=== PATIENT | female | born 1945 | race Caucasian/White ===

== ENCOUNTER → 2017-10-31 | Outpatient (CLI) | payer MEDICARE, OTHER ==
[~2017-10-31] MED LIST: ASCO-182 PO; ASPI-1471 PO; ASPI-715 PO; BLOO-1318 MC; CALC1TAB32 PO; CHOL200074 PO; EXE25PT PO; EZET1TAB70 PO; EZET1TAB81 PO; FLU45SYR17 IM; FLU45SYR25 IM ONLY; FLU60SYR30 IM ONLY; GLIM2TAB43 PO; GLIM4TAB50 PO; GLUC100015 PO; GLY5 PO; GLYB1TAB47 PO; LEVI SQ; LISI2.5T60 PO; METF-420 PO; MULT1TAB64 PO; OMEG-11 PO; OXYGENHOME INH; PIOG45TA18 PO; PIOG45TA22 PO; PNEU0.5D3 IM; RIS35 PO; SIMV-49 PO; VITA-200 PO; [UNRECOGNIZED DRUG - CODE] MC; [UNRECOGNIZED DRUG - CODE] PO
--- NOTE | 2017-10-31 16:23 | RADIOLOGY IMAGING REPORT ---
FACILITY: [facility] - [place] PATIENT NAME: CRISTI MURGUIA : [id number] MR: [id number] V: [id number] EXAM DATE: [id number] ORDERING PHYSICIAN: GEOFF HUMPHREY TECHNOLOGIST: Lauren Norman PROCEDURE:BILATERAL DIGITAL SCREENING MAMMOGRAM WITH CAD ASSISTED INTERPRETATION & 3D TOMOSYNTHESIS COMPARISON:Prior mammograms 09/05/16, 07/27/15, 08/04/14, 07/27/13, 06/27/12, 06/25/11. INDICATIONS:SCREENING FINDINGS: Mildly heterogeneous fibroglandular tissue is seen throughout the breasts. The parenchymal pattern has remained stable allowing for difference in mammographic technique & patient positioning. Area of postsurgical scaring in the 6 o'clock position Left breast is again seen. Skin thickening is also noted about the Left breast consistent with the history of prior radiation therapy. There is no evidence of malignant appearing mass, malignant appearing calcifications or other secondary sign of malignancy in either breast. DIAGNOSTIC CATEGORY 2--BENIGN FINDING. RECOMMENDATIONS: ROUTINE MAMMOGRAM AND CLINICAL EVALUATION. IMPRESSION: BIRADS 2: Benign finding No significant abnormality is seen. Dictated by: Sarita Smith M.D. on 10/31/2017 at 11:42 Transcribed by: DANIEL on 10/31/2017 at 11:50 Approved by: Sarita Smith M.D. on 10/31/2017 at 16:22 [facility]
== END ==
LOC: MAMO 01:13
PROVIDERS: ATTEND Internal Medicine
DX: Z12.31 Encounter for screening mammogram for malignant neoplasm of breast (principal)
CPT/HCPCS: 77063; 77067

== ENCOUNTER → 2018-11-28 | Outpatient (CLI) | payer MEDICARE, OTHER ==
[~2018-11-28] MED LIST changes: +CALC600T63 PO; +FLU180SY11 IM; -METF-420 PO; +METF-452 PO; +OMEG-24 PO
--- NOTE | 2018-11-28 14:08 | RADIOLOGY IMAGING REPORT ---
FACILITY: [facility] PATIENT NAME: CRISTI MURGUIA : [id number] MR: [id number] V: [id number] EXAM DATE: [id number] ORDERING PHYSICIAN: MARIA L JIMENEZ TECHNOLOGIST: Lauren Norman PROCEDURE: BILATERAL DIGITAL SCREENING MAMMOGRAM WITH CAD ASSISTED INTERPRETATION & 3D TOMOSYNTHESIS REASON FOR STUDY: Screening FAMILY HISTORY OF BREAST CANCER: Herself in 2006 & her brother. BREAST PROCEDURES/TREATMENTS: Surgical biopsy & radiation therapy of the Left breast in 2006 COMPARISON: 10/31/17, 09/05/16, 07/27/15, 08/04/14, 07/27/13, 06/27/12 VIEWS OBTAINED: Bilateral 2D & 3D full field CC & MLO projections. BREAST DENSITY: There are scattered areas of fibroglandular density throughout the breasts. MAMMOGRAM FINDINGS: Again noted is the area of post surgical scarring & architectural distortion in the 6 o'clock position of the Right breast. There is a small grouping of slightly pleomorphic calcifications in the upper outer quadrant of the Right breast at the junction of the middle & posterior depth that appear slightly increased when compared with the prior studies. Spot magnification views recommended for further evaluation. IMPRESSION: BIRADS 0: Incomplete, need additional imaging evaluation. Additional views of the Right breast recommended as described. DIAGNOSTIC CATEGORY 0--INCOMPLETE: NEED ADDITIONAL IMAGING EVALUATION. RECOMMENDATIONS: ADDITIONAL MAMMOGRAPHIC VIEWS REQUIRED: RIGHT BREAST. Dictated by: Sarita Smith M.D. on 11/28/2018 at 13:59 Transcribed by: ROMAN on 11/28/2018 at 14:04 Approved by: Sarita Smith M.D. on 11/28/2018 at 14:07 [facility]
== END ==
LOC: MAMO 01:19
PROVIDERS: ATTEND Family Medicine
DX: R92.8 Other abnormal and inconclusive findings on diagnostic imaging of breast (principal); Z80.3 Family history of malignant neoplasm of breast
CPT/HCPCS: 77063; 77067

== ENCOUNTER → 2018-12-04 | Outpatient (CLI) | payer MEDICARE, OTHER ==
--- NOTE | 2018-12-09 12:26 | RADIOLOGY IMAGING REPORT ---
FACILITY: [facility] - [place] PATIENT NAME: CRISTI MURGUIA : [id number] MR: [id number] V: [id number] EXAM DATE: [id number] ORDERING PHYSICIAN: MARIA L JIMENEZ TECHNOLOGIST: Dianna Da Silva PROCEDURE:RIGHT DIGITAL MAMMOGRAM DIAGNOSTIC WITH CAD ASSISTED INTERPRETATION & 3D TOMOSYNTHESIS REASON FOR STUDY: Further evaluation. FAMILY HISTORY OF BREAST CANCER: Self in 2006 and brother. BREAST PROCEDURES/TREATMENTS: Surgical biopsy and radiation therapy on the Left in 2006. COMPARISON STUDIES: Prior mammograms 11/28/18, 10/31/17, 09/05/16, 07/27/15, 08/04/14, 07/27/13, 06/27/12. VIEWS OBTAINED: Full field 2D Right MLO projection & 2D Spot magnification views in the Right CC & MLO projections. MAMMOGRAM FINDINGS: The small grouping of slightly pleomorphic calcifications in the upper outer quadrant of the Right breast at the junction of the middle and posterior depth are re-demonstrated. These are slightly more prominent when compared to the prior study. Stereotactic biopsy is recommended for further evaluation. If these are too far posterior to localize stereotacticly then mammographically guided needle hookwire localization with surgical excision is recommended. DIAGNOSTIC CATEGORY 4--SUSPICIOUS FOR MALIGNANCY. RECOMMENDATIONS: STEREOTACTIC BREAST BIOPSY: RIGHT BREAST. IMPRESSION: BIRADS 4: Suspicious for malignancy. Stereotactic biopsy of the slightly pleomorphic increasing calcifications in the upper outer quadrant of the Right breast as described above. If these are too far posterior to localize stereotacticly than mammographically guided hookwire localization with surgical excision recommended. Dictated by: Sarita Smith M.D. on 12/04/2018 at 15:38 Transcribed by: DANIEL on 12/05/2018 at 9:40 Approved by: Sarita Smith M.D. on 12/09/2018 at 12:25 [facility]
== END ==
LOC: RAD 07:03
PROVIDERS: ATTEND Family Medicine
DX: Z12.31 Encounter for screening mammogram for malignant neoplasm of breast (principal); Z80.3 Family history of malignant neoplasm of breast
CPT/HCPCS: 77061; 77065

== ENCOUNTER → 2018-12-22 | Outpatient (CLI) | payer MEDICARE, OTHER ==
[~2018-12-22] MED LIST changes: +DIAZ-308 PO
[2018-12-22 15:34] LABS: INR 0.9
== END ==
LOC: LAB 15:14
PROVIDERS: ATTEND Family Medicine
DX: Z01.812 Encounter for preprocedural laboratory examination (principal)
CPT/HCPCS: 36415; 85610

== ENCOUNTER → 2018-12-24 | Outpatient (CLI) | payer MEDICARE, OTHER ==
--- NOTE | 2018-12-25 16:03 | RADIOLOGY IMAGING REPORT ---
FACILITY: [facility] PATIENT NAME: CRISTI MURGUIA : [id number] MR: [id number] V: [id number] EXAM DATE: [id number] ORDERING PHYSICIAN: MARIA L JIMENEZ TECHNOLOGIST: Dianna Da Silva PROCEDURE:RIGHT DIGITAL MAMMOGRAM DIAGNOSTIC REASON FOR STUDY: Preliminary database marketing manager film for stereotactic biopsy of the Right breast FAMILY HISTORY OF BREAST CANCER: Self in 2007 & brother BREAST PROCEDURES/TREATMENTS: Surgical biopsy Left breast 2006 followed by radiation therapy COMPARISON STUDIES: 12/04/18, 11/28/18, 10/31/17, 09/05/16, 07/27/15, 08/04/14, 07/27/13, 06/27/12 MAMMOGRAM VIEWS OBTAINED: Full field 2D Right mediolateral view & a 2D spot compression view Right LM view BREAST DENSITY: There are scattered areas of fibroglandular density throughout the Right breast. MAMMOGRAM FINDINGS: The small grouping of slightly pleomorphic calcifications in the upper outer quadrant of the Right breast at the junction of the middle & posterior depths are redemonstrated. However, these were too far posterior to be positioned within the target window for the stereotactic biopsy. Therefore, surgical excision with mammographically guided hookwire localization is recommended. DIAGNOSTIC CATEGORY 4--SUSPICIOUS FOR MALIGNANCY. RECOMMENDATIONS: SURGICAL BIOPSY COORDINATED WITH MAMMOGRAM HOOKWIRE LOCALIZATION: RIGHT BREAST. IMPRESSION: BIRADS 4: Suspicious for malignancy. Surgical biopsy of the pleomorphic calcifications upper outer quadrant Right breast recommended coordinated with mammographic hookwire localization as described above. Dictated by: Sarita Smith M.D. on 12/24/2018 at 10:51 Transcribed by: ROMAN on 12/25/2018 at 12:20 Approved by: Sarita Smith M.D. on 12/25/2018 at 16:02 [facility]
--- NOTE | 2018-12-25 16:03 | RADIOLOGY IMAGING REPORT ---
FACILITY: [facility] - [place], [place] PATIENT NAME: CRISTI MURGUIA : [id number] MR: [id number] V: [id number] EXAM DATE: ORDERING PHYSICIAN: MARIA L JIMENEZ TECHNOLOGIST: Dianna Da Silva PROCEDURE: STEREOTACTIC RIGHT BREAST BIOPSY COMPARISON: None. INDICATIONS: calcifications/Indeterminate calcifications upper outer quadrant of the Right breast FINDINGS: Multiple attempts at localizing the pleomorphic calcifications in the upper outer quadrant of the Right breast was unsuccessful due to the far posterior location. Therefore, surgical excision coordinated with mammographic hookwire localization recommended. DIAGNOSTIC CATEGORY 4--SUSPICIOUS FOR MALIGNANCY. RECOMMENDATIONS: SURGICAL BIOPSY COORDINATED WITH MAMMOGRAM HOOKWIRE LOCALIZATION: RIGHT BREAST. IMPRESSION: BIRADS 4: Suspicious for malignancy. Surgical biopsy coordinated with mammographic hookwire localization of the pleomorphic calcifications upper outer quadrant of the Right breast recommended as described above. Dictated by: Sarita Smith M.D. on 12/24/2018 at 10:53 Transcribed by: ROMAN on 12/25/2018 at 12:14 Approved by: Sarita Smith M.D. on 12/25/2018 at 16:02 [facility]
== END ==
LOC: LAB 12-18 08:30 → MAMO 01:21
PROVIDERS: ATTEND Family Medicine
DX: R92.1 Mammographic calcification found on diagnostic imaging of breast (principal)
CPT/HCPCS: 19081; 77061; 77065

== ENCOUNTER → 2019-01-19 | Outpatient (CLI) | payer MEDICARE, OTHER ==
--- NOTE | 2019-01-19 14:24 | EKG ---
FACILITY: PATIENT NAME: CRISTI MURGUIA : [id number] MR: [id number] V: [id number] EXAM DATE: ORDERING PHYSICIAN: EVA OLMEDO TECHNOLOGIST: BUD Childers Reason : PRE OP CLEARANCE Blood Pressure : / mmHG Vent. Rate : 063 BPM Atrial Rate : 063 BPM P-R Int : 128 ms QRS Dur : 126 ms QT Int : 440 ms P-R-T Axes : 066 -15 041 degrees QTc Int : 450 ms Normal sinus rhythm Right bundle branch block Abnormal ECG No previous ECGs available Referred By: HONORIO Confirmed By:
== END ==
LOC: RESP 13:58
PROVIDERS: ATTEND Surgery
DX: Z01.810 Encounter for preprocedural cardiovascular examination (principal); E11.65 Type 2 diabetes mellitus with hyperglycemia; R94.31 Abnormal electrocardiogram [ECG] [EKG]

== ENCOUNTER 2019-01-29 00:19 | Day surgery (SDC) | payer MEDICARE, OTHER ==
[2019-01-20 15:46] LABS: PLATELET COUNT, AUTOMATED 193 K/uL (150-450)
[~2019-01-29] VITALS: Ht 157.5 cm; Wt 103.9 kg
[~2019-01-29 00:19] MED LIST changes: +FAMOTIDINE 20 MG TAB PO ONE; +LIDOCAINE/SOD BICARB 8.4% SYR ID ONE; +MIDAZOLAM 2 MG/2 ML VIAL IVP PRN; +NORMOSOL R SOLN(*) 1000 ML BAG 1,000 ML IV PRN; +ceFAZolin(*) 2GM/D5W 50ML 50 ML IVPB ONE
[2019-01-29 09:49] VITALS: BP 137/62
[2019-01-29] MEDS ORDERED: NORMOSOL R SOLN(*) 1000 ML BAG 1,000 ML IV PRN (10:40)
[2019-01-29] MEDS ORDERED: FAMOTIDINE 20 MG TAB PO ONE (10:40)
[2019-01-29] MEDS ORDERED: MIDAZOLAM 2 MG/2 ML VIAL IVP PRN (10:40)
[2019-01-29] MEDS ORDERED: LIDOCAINE/SOD BICARB 8.4% SYR ID ONE (10:40)
[2019-01-29] MEDS ORDERED: ceFAZolin(*) 2GM/D5W 50ML 50 ML IVPB ONE (10:40)
[2019-01-29] MEDS ORDERED: PROPOFOL EMUL(*) 10MG/ML 20 ML 20 ML ONE (11:32)
[2019-01-29] MEDS ORDERED: LIDOCAINE MPF 1% 5 ML VIAL ONE (11:32)
[2019-01-29] MEDS ORDERED: DEXAMETHASONE SOD PHOS 10MG/ML ONE (11:32)
[2019-01-29] MEDS ORDERED: fentaNYL CITR 100 MCG/2 ML AMP ONE (11:32)
[2019-01-29] MEDS ORDERED: ONDANSETRON 4 MG/2 ML VIAL ONE (11:32)
[2019-01-29] MEDS ORDERED: ROPIVACAINE 0.5% 20 ML VIAL ONE (11:32)
[2019-01-29] MEDS ORDERED: ePHEDrine 25 MG/5 ML DISP.SYR IVP ONE (11:42)
[2019-01-29] MEDS ORDERED: DOCU-416 PO (13:12)
[2019-01-29] MEDS ORDERED: TRAM-420 PO (13:12)
--- NOTE | 2019-01-29 13:14 | Short(Outpt) Discharge Summary ---
Discharge Summary Reason for Hosp/Final Diag: (1) Calcification of right breast on mammography Status: Chronic Hospital Course & Plan: Right breast calcifications excised without problems. Departure Discharge to: Home, Self Care Discharge Instructions Home Meds Active Scripts Docusate Sodium (COLACE) 100 Mg Capsule, 1 CAP PO BID, #30 CAP 0 Refills TAKE WITH A FULL GLASS OF WATER Prov:EVA OLMEDO MD 01/29/19 Tramadol Hcl (TRAMADOL HCL) 50 Mg Tablet, 1 TAB PO Q4H PRN for PAIN, #20 TAB 0 Refills Prov:EVA OLMEDO MD 01/29/19 Pioglitazone Hcl (ACTOS) 45 Mg Tablet, 1 TAB PO QDAY, #90 TAB 0 Refills Prov:MARIA L JIMENEZ MD 10/28/18 Simvastatin (SIMVASTATIN) 20 Mg Tablet, 1 TAB PO HS, #90 TAB 0 Refills Prov:MARIA L JIMENEZ MD 10/28/18 Glimepiride (GLIMEPIRIDE) 4 Mg Tablet, 1 TAB PO QDAY, #90 TAB 0 Refills Prov:MARIA L JIMENEZ MD 10/28/18 Metformin Hcl (METFORMIN HCL) 1,000 Mg Tablet, 1 TAB PO BID, #180 TAB 3 Refills Prov:GEOFF HUMPHREY MD 10/30/17 One Touch Ultra Test Strips (ONE TOUCH ULTRA TEST STRIPS) 1 Each Strip, 100 EA MC DAILY, #100 STRIP 11 Refills Use to test blood sugar once daily and as needed. Prov:GEOFF HUMPHREY MD 01/23/17 Reported Medications Calcium Carbonate (CALCIUM) 600 Mg Tablet, 2 TAB PO DAILY 10/13/18 [place]-3 Fatty Acids/Fish Oil (FISH OIL 1,200 MG SOFTGEL) 1 Each Capsule, 1 EACH PO DAILY, CAPSULE 10/13/18 Oxygen (OXYGEN) Inha, 4 L INH HS, L [employer] 05/12/15 Multivitamin (MULTI VITAMIN DAILY) 1 Each Tablet, 1 TAB PO QDAY 04/13/15 Glucosamine Sulfate 2KCL (GLUCOSAMINE RELIEF) 1,000 Mg Tablet, 1 TAB PO DAILY 04/12/14 Aspirin (ASPIR 81) 81 Mg Tablet.dr, 1 TAB PO QDAY, TAB 04/12/14 Ascorbic Acid (VITAMIN C) 500 Mg Tablet, 1 TAB PO DAILY 04/12/14 Vitamin E Acetate (VITAMIN E) 400 Unit Capsule, 1 CAP PO DAILY 04/12/14 Cholecalciferol (Vitamin D3) (VITAMIN D-3) 2,000 Unit Capsule, 1 CAP PO DAILY 04/12/14 Follow up Referrals: General Surgery - 02/16/19 @ Surgery, General with EVA OLMEDO MD You have a follow up appointment scheduled with Dr. Olmedo on 02/16/19, at 4:00pm. Diet: Regular Activity: As Tolerated Special Instructions: You may remove the white surgical dressing on 01/31/19, then you can shower. After showering, leave the incision open to air but leave the steristrips in place until they fall off on their own. Do not immerse the incision for 2 weeks. EVA OLMEDO MD Jan 29, 2019 13:14
--- NOTE | 2019-01-29 13:19 | Post Operative Progress Note ---
Post Operative Progress Note Date: Jan 29, 2019 Time: 13:11 Surgeon: Lise Dictation number: [id number] Anesthesia: LMA by Dr. Hogan Pre-Op Diagnosis: Right breast calcifications Post-Op Diagnosis: SHEREEN Findings: C/w dx, calcifications within specimen on specimen mammogram Procedure(s): Wire-guided right breast calcification excision Specimen Removed:(May be N/A): Right breast calcifications Complications: none Fluids: See anesthesia record Estimated Blood Loss: MInimal Date OP Note Dictated: Jan 29, 2019 Time OP Note Dictated: 13:13 EVA OLMEDO MD Jan 29, 2019 13:19
[2019-01-29 13:30] VITALS: BP 139/58
[2019-01-29 13:44] VITALS: BP 132/59
[2019-01-29 13:46] VITALS: BP 142/70
--- NOTE | 2019-01-30 02:31 | OPERATIVE REPORT 1 ---
EVENT DATE: January 29, 2019 SURGEON: Umang Lezama MD ANESTHESIOLOGIST: Rob Hogan DO ANESTHESIA: LMA. PREOPERATIVE DIAGNOSIS Right breast calcifications on mammogram. POSTOPERATIVE DIAGNOSIS Right breast calcifications on mammogram. PROCEDURE PERFORMED Wire-guided excision of right breast calcifications. COMPLICATIONS None. CONDITION Stable. BLOOD LOSS Minimal. INDICATIONS FOR PROCEDURE This is a 73-year-old female who was referred to me with changing calcifications on her mammogram in her right breast. They were too far posterior for mammogram stereotactic biopsy, and so it was recommended that she undergo surgical excision, and she provided consent for this. DESCRIPTION OF PROCEDURE Patient was brought to the operating room and placed supine on the operating table. Right breast was prepped and draped in a sterile fashion. Time-out was completed, and I marked the skin overlying the calcifications using the mammogram and wire placement imaging for guidance, anesthetized the skin with 0.5% bupivacaine plain, and made a curvilinear incision overlying where I estimated the calcifications to be deep to. I then made an incision where I had marked the skin, dissected to the dermis and subcutaneous fat, dissected straight down until I ran into the wire, pulled the wire into the wound, dissected around the wire all the way until I got around the tip of the wire, and then pulled the specimen out. I noticed the posterior portion of the specimen was very close to the wires, so I removed a plate of tissue and called it the deep margin. I marked both the primary specimen and the deep margin with a long lateral stitch on the lateral aspect and a short suture on the superior aspect, and then I marked a Vicryl suture on the posterior margin on the calcification side of the plate of tissue. I then placed this on a mammographic grid and brought it over to Radiology, and we took a mammographic picture, and the calcifications were easily seen in the primary excision tissue. No calcifications or other suspicious features were in the posterior margin. These were then taken in preservative to pathology, and I went back to the operating room, scrubbed back in, irrigated and dried the wound, made sure it was hemostatic, and closed the pocket with interrupted 3-0 Vicryl sutures. The skin was closed with interrupted 3-0 Vicryl deep dermal sutures and 4-0 Monocryl running subcuticular sutures. The skin was cleaned and dried and Steri-Strips were applied, followed by sterile surgical dressing. Patient was awakened from LMA and she was transferred to the recovery room in stable condition, having tolerated the procedure without apparent problems. SYLVIA
[2019-02-03] MEDS ORDERED: SIMV-49 PO (09:10)
[2019-02-03] MEDS ORDERED: PIOG45TA22 PO (09:10)
[2019-02-03] MEDS ORDERED: GLIM4TAB50 PO (09:10)
== END 2019-01-29 13:30 | disposition home or self-care (01) ==
LOC: OR 00:19
PROVIDERS: ATTEND Surgery
DX: R92.1 Mammographic calcification found on diagnostic imaging of breast (principal); E11.9 Type 2 diabetes mellitus without complications
CPT/HCPCS: 19125; 36415; 36416; 82948; 85025; 88305; A9270; J1100; J2001; J2405; J2704; J2795; J3010; 19283; 82310; 82374; 82435; 82565; 82947; 84132; 84295; 84520; J0690